=== PATIENT | male | born 1970 | race Caucasian/White ===

== ENCOUNTER 2020-08-25 03:29 | Outpatient (CLI) | payer OTHER, SELFPAY ==
[2020-08-28 12:36] LABS: COVID-19 RT-PCR Result NEGATIVE (Negative)
[2020-09-01 08:35] LABS: Influenza A RNA Result Negative (Negative); Influenza B RNA Result Negative (Negative); RSV RNA Result Negative (Negative); Specimen Description Nasopharynx
== END 2020-08-25 03:49 ==
PROVIDERS: PCP Family Medicine; Visit Provider Nurse Practitioner Adult Health
DX: R53.81 Other malaise (principal); R68.83 Chills (without fever); J34.89 Other specified disorders of nose and nasal sinuses; R52 Pain, unspecified; R53.83 Other fatigue; R51.9 Headache, unspecified
CPT/HCPCS: 87631; U0003

== ENCOUNTER 2020-09-22 02:30 | Outpatient (CLI) | payer OTHER, SELFPAY ==
[2020-09-22 07:45] LABS: Abs Immature Grans 0.03 10^3/uL (0.0-0.06); Absolute Basophil Count 0.04 10^3/uL (0.0-0.2); Absolute Lymphocyte Count 1.92 10^3/uL (1.2-3.4); Absolute Monocyte Count 0.53 10^3/uL (0.1-0.8); Absolute Neutrophil Count 3.46 10^3/uL (1.2-6.7); Basophils % 0.7; Eosinophils % 1.6; Immature Grans % 0.5; Lymphocytes % 31.6; MCH 33.1 pg (27.0-33.0); MCHC 35.4 % (32.0-36.0); MCV 93.6 fL (80-95); MPV 9.7 fL (8.0-11.0); Monocytes % 8.7; Neutrophils % 56.9; Nucleated RBC 0 %; Platelet Count 213 10^3/uL (130-400); RBC 5.13 10^6/uL (4.36-5.78); RDW 11.4 % (11.8-14.1); RDW-SD 39.2 fL; WBC 6.08 10^3/uL (4.4-10.8)
[2020-09-22 09:14] LABS: ALT 51 U/L (16-63); AST 23 U/L (15-37); Albumin 4.2 g/dL (3.4-5.0); Alkaline Phosphatase 76 U/L (46-116); Anion Gap 7.3 mmol/L (3-11); BUN 12 mg/dL (7-18); Bilirubin, Total 0.5 mg/dL (0.2-1.0); CO2 29.7 mmol/L (21.0-32.0); CREATININE 1.14 mg/dL (0.70-1.30); Calcium 9.2 mg/dL (8.5-10.1); Calculated LDL 95 mg/dL (<100); Chloride 102 mmol/L (98-107); Cholesterol 167 mg/dL (<200); Glucose 105 mg/dL (74-106); HDL Cholesterol 36 mg/dL (40-60); Potassium 4.4 mmol/L (3.5-5.1); Sodium 139 mmol/L (136-145); TSH (W/Ref FT4) 2.52 uIU/mL (0.36-3.74); Total Protein 7.2 g/dL (6.4-8.2); Triglyceride 183 mg/dL (<150)
== END 2020-09-22 02:50 ==
PROVIDERS: PCP Family Medicine; Visit Provider Family Medicine
DX: R55 Syncope and collapse (principal)
CPT/HCPCS: 36415; 80053; 80061; 84443; 85025

== ENCOUNTER 2020-09-22 03:09 | Outpatient (CLI) | payer OTHER, SELFPAY ==
--- NOTE | 2020-10-06 08:36 | W.ZIOMONITOR ---
Date of service: 10/06/20 Time of Service: 08:36 14 Day Transliterator Referring Provider:: brian Indications:: syncope Note: This is a 14-day monitor ordered for indication of syncope. ?Patient was in normal sinus rhythm for the majority of the recording with an average heart rate of 69 bpm. ?There were rare PVCs and rare PACs. ?There were 7 episodes of supraventricular tachycardia with the longest lasting 6 beats. ?There were no episodes of ventricular tachycardia. ?There are no episodes of atrial fibrillation, no pauses greater than 3 seconds and no evidence of high degree heart block ?There were no patient triggered events.
== END 2020-09-22 03:29 ==
PROVIDERS: PCP Family Medicine; Visit Provider Family Medicine
DX: R55 Syncope and collapse (principal); I47.1 Supraventricular tachycardia
CPT/HCPCS: 93246

== ENCOUNTER 2021-07-23 03:52 | Outpatient (CLI) | payer OTHER, SELFPAY ==
[2021-07-29 10:32] LABS: Testosterone, Total 223 ng/dL (240-950)
== END 2021-07-23 03:53 | disposition home or self-care (01) ==
LOC: LBO 03:52
PROVIDERS: PCP Family Medicine; Visit Provider Family Medicine
DX: G47.19 Other hypersomnia (principal)
CPT/HCPCS: 36415; 84403